=== PATIENT | female | born 1965 | race Caucasian/White ===

== ENCOUNTER → 2017-05-28 | Outpatient (CLI) | payer OTHER | LOC: FIMAGING 14:22 | PROVIDERS: ATTEND Internal Medicine | DX: Z12.31 Encounter for screening mammogram for malignant neoplasm of breast (principal) | CPT/HCPCS: G0202 ==

== ENCOUNTER → 2018-11-02 | Outpatient (CLI) | payer OTHER | LOC: FIMAGING 13:46 | PROVIDERS: ATTEND Internal Medicine | DX: Z12.31 Encounter for screening mammogram for malignant neoplasm of breast (principal); Z13.820 Encounter for screening for osteoporosis; M85.89 Other specified disorders of bone density and structure, multiple sites; E55.9 Vitamin D deficiency, unspecified; Z78.0 Asymptomatic menopausal state; Z21 Asymptomatic human immunodeficiency virus [HIV] infection status ==